=== PATIENT | female | born 1985 | race African-American/Black ===

== ENCOUNTER 2019-05-03 21:05 | Emergency (ER) | payer OTHER ==
[~2019-05-03] VITALS: Ht 170.2 cm; Wt 63.5 kg
[2019-05-03 21:45] VITALS: BP 128/88
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
[2019-05-03 21:55] VITALS: BP 128/88
--- NOTE | 2019-05-03 21:55 | NUR ---
Note sadiqgaby in EDM - 05/04/19 at 0220 by [facility] ER DISCHARGE NOTE: Patient is cleared to be discharged per ERMD, pt is aox4, on room air, with stable vital signs. pt was given dc and prescription instructions, pt was able to verbalize understanding, pt id band removed. pt is able to ambulate with steady gait. pt took all belongings.
--- NOTE | 2019-05-03 22:00 | NUR ---
Homeless Discharge: Patient is being discharged from medical care. Awake, alert and oriented x3. After care instructions, including referral to community resources were given. Patient verbalized understanding of After care instructions; at this time patient does not request medications, equipment or placement. Patient signed patient consent in the medical record for patient destination upon discharge. ID band removed. Patient ambulated out with all personal belongings with steady gait.
== END 2019-05-03 22:00 | disposition home or self-care (01) ==
LOC: EDBD 21:05 → EMR 21:25
DX: S70.01XA Contusion of right hip, initial encounter (principal); V03.10XA Pedestrian on foot injured in collision with car, pick-up truck or van in traffic accident, initial encounter; Y92.9 Unspecified place or not applicable; G40.909 Epilepsy, unspecified, not intractable, without status epilepticus; I10 Essential (primary) hypertension
CPT/HCPCS: 99282